=== PATIENT | male | born 1970 | race Caucasian/White ===

== ENCOUNTER 2018-12-07 10:01 | Outpatient (CLI) | payer OTHER ==
[2016-09-02 03:17] VITALS: BP 160/110
--- NOTE | 2018-12-07 15:00 | Diagnostic Imaging Report ---
ASHLEY MEDRANO [facility] [address] [facility] [address] [address] Report Submission Date: Dec 07, 2018 11:03:52 AM CDT Patient Study Name: ASHLEY NAIR Date: Dec 07, 2018 10:05:52 AM CDT Modality Type: DX Gender: M Description: KNEE 1 OR 2 VIEWS : 66 Institution: [facility] Physician: ASHLEY MEDRANO Examination: Plain film left knee History: LEFT KNEE, PAIN IN LEFT KNEE. PT STATES HE FELL OFF A ROOF AND HAD INJURIES ABOUT 30 YEARS AGO. Findings: 2 views of the left knee demonstrates mild degenerative spurring. No fracture. No dislocation. No joint effusion. No soft tissue irregularity. Impression: Mild degenerative changes. No acute appearing osseous abnormality Electronically signed on Dec 07, 2018 11:03:52 AM CDT by: Domenico NESS
== END 2018-12-07 10:03 ==
LOC: LAB 10:01
PROVIDERS: ATTEND Family Medicine
DX: M17.11 Unilateral primary osteoarthritis, right knee (principal); M25.562 Pain in left knee; G89.29 Other chronic pain
CPT/HCPCS: 73560

== ENCOUNTER 2019-05-16 09:08 | Outpatient (CLI) | payer OTHER ==
[2016-09-02 03:17] VITALS: BP 160/110
--- NOTE | 2019-05-21 14:07 | CONSULTATION REPORT ---
CHIEF COMPLAINT: Left knee pain. HISTORY OF PRESENT ILLNESS: This 48-year-old male, BMI 39.6, is seen per request of Dr. Arnold Luo for recommendations regarding treatment of left knee pain. The patient indicates he has undergone an MRI of the left knee performed on 02/01/2019 without contrast at [facility]. MRI: That study revealed an intrasubstance tear of the medial meniscus with prominent posterior parameniscal cyst. The signal extended into the central aspect of the body of the meniscus. There was a questionable articular surface component near the posteromedial meniscal capsular junction. Lateral meniscus was intact. The patient did have a small plica-like structure noted as well. X-RAYS: Plain film x-rays obtained of the left knee on 12/07/2018 at [facility] revealed mild degenerative changes with no acute- appearing osseous abnormality, no joint effusion. There was history of fall off a roof with injuries about 30 years prior. He reports this was when he was about 17 years old, fell through a tarp on a roof and landed on his feet, causing his knees to dislocate. The patient indicates the left knee is the one that bothers him primarily. He does report having undergone a previous right knee medial collateral ligament repair shortly after the initial injury. He did not have surgery on the left knee, however. The patient does report the left knee pain is diffuse or allover. He describes the quality of his knee pain as sharp and throbbing. He indicates it is severe and worsening. It has been really severe for about the past year. He rates his pain at rest as 10/10 without medication, 10/10 with activity. He says he has been taking Endocet 5/325 three times daily. He does report decrease in mobility or knee motion. He also reports some knee stiffness. He reports his knee pain is worse with activity, weightbearing, running, pivoting, cutting, climbing stairs, descending stairs, squatting, rising after sitting, bending any weightbearing, standing, putting on shoes and socks and getting in and out of a car or chair. Knee pain is better with nothing. Ice helps just a little for a short time. Pain has progressed with activities of daily living. He does report night pain which awakens him at night. He does report a fear of falling. The patient does report that the knee locks, catches, gives out, clicks. He reports he ambulates with severe difficulty, uses a walking cane, crutches and a knee brace. He is taking narcotic pain medication on a routine basis, indicates that he takes Percocet 5/325 three times daily as well as alprazolam 1 mg p.o. t.i.d. He also takes ibuprofen 200 mg three p.o. t.i.d. for a total of 1800 mg ibuprofen daily. He has done so for several years. He indicates that he has taken Percocet on and off for a long time as well. He did have an injection in the left knee around 1988, none since. He has done home exercises for years to try to rehabilitate both knees. He has tried braces, crutches and a cane for years. He has tried losing 30 pounds, but that did not make his left knee pain better. He reports taking Tylenol, glucosamine, muscle relaxers and doing pain management. The patient does indicate tingling in the left third, fourth and fifth toes after a back surgery in the past. He does report some intermittent leg pain in the left thigh region. ALLERGIES: The patient reports allergy to codeine which causes hives. MEDICATIONS: He indicates his current medications include Invega, Celexa, Wellbutrin, he spells that "opranazole," and Aleve and ibuprofen. PAST MEDICAL HISTORY: The patient indicates his past medical history is negative except as outlined above. PAST SURGICAL HISTORY: He indicates previous surgical history includes microdiscectomy L3-4 [place] in [address] Masterson in [place], [place], and bilateral hip replacements, one after the other performed in [address] Bob in [place], [place]. REVIEW OF SYSTEMS: The patient's review of systems is negative for constitutional, skin, breast, ears, nose, throat, eyes, cardiovascular, respiratory, gastrointestinal, genitourinary, neurologic. He does acknowledge psychiatric difficulties with anxiety plus traumatic stress disorder for which he takes the alprazolam on a chronic basis. PHYSICAL EXAMINATION: Vital signs are recorded revealing pulse 93, respirations 18, blood pressure 147/75 with oxygen saturation 97% on room air. His weight is 268 pounds, height 69.5 inches with a calculated BMI of 39.6. HEENT normocephalic. Neck supple. Lungs clear to percussion bilaterally. Cardiovascular regular rate and rhythm with pulses present and symmetric, radial aspect of wrist and posterior tibialis bilaterally. Abdomen is soft, nontender, obese. Extremity exam, there is mild decrease in range of motion of the left knee, patient lacking about 5 degrees of full extension. There is a moderate effusion in the left knee. There is crepitus on range of motion of the left knee, mild. The patient does have quadriceps atrophy and quadriceps strength reduction on the left versus right. He is able to extend against resistance, however. The patient does have no gross ligamentous instability, but he does guard somewhat on anteroposterior testing and medial/lateral stress testing. There is exacerbation of discomfort on varus and valgus stress while flexing and extending the left knee. The patient does have tenderness and a sensation of snapping/popping with extension of the knee from flexed position, stating it hurts along the superior and lateral border of the left patella. He reports the pain seems to be in the middle of the knee, along the upper part of the patella most prominently. He does have some discomfort on patellofemoral compression while flexing/extending the knee. There is no rissa subluxation of the patella on laterally-directed force, but this does exacerbate his discomfort slightly. The patient does have exacerbation of discomfort on both varus and valgus stress while flexing and extending the left knee. There is palpable tender plica both superomedially/superolaterally on palpation. IMPRESSION: 1. 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 2. Obesity with BMI 39.6. 3. Patient requiring narcotic medication on initial orthopedic assessment (Endocet one p.o. t.i.d.). 4. Decreased sensation lateral aspect left foot, chronic, post back surgery, per patient. 5. Disability status for back, knee and posttraumatic stress disorder/social anxiety disorder reported per patient. 6. History of bilateral total hip arthroplasties. 7. Codeine allergy. PLAN: Options discussed with patient, I recommend arthroscopy of the left knee. I did discuss with the patient what that entails, expectations, limitations, complications. He is advised that arthroscopy is not expected to be a "cure all" and that some individuals continue to have pain or functional limitations after surgery and in occasional instances the pain and functional limitations can be worse than what they started with. I did advise the patient that , amputation, myocardial infarction, stroke, life and/or limb threatening blood clots, failure to relieve pain, continued limitations, worse limitations, worse pain, worse stiffness, need for additional surgical procedure or procedures can present following surgery, infection rarely occurs as well, he is told. The patient has a number of questions and all of these are answered to his voiced satisfaction. We discussed the various alternatives available, both surgical and nonsurgical. I did advise him that knee surgery for the arthroscopic intervention we discussed is not an absolute requisite, although it is expected to be helpful for him. He voices satisfaction with answers to his questions and voices comprehension of the potential complications. I did advise him that it is important for him to anticipate doing supervised physical therapy after surgery if he hopes to get a satisfactory or better result. I did advise him that his [facility] status does indicate that he likely will have troubles with obtaining insurance coverage for supervised physical therapy and it is therefore his obligation to cover/self-pay supervised physical therapy as appropriate to expect satisfactory or better result. He verbalizes acceptance of this. I did advise him that the arthroscopy of the knee is not expected to help pain which may originate from other sources such as his back or his hips or one or more systemic difficulties. Moreover, I advised him that it is best for him to reduce his narcotic pain medication as much as possible prior to surgery as patients who are on narcotics preoperatively do have perceived poorer results, even after appropriate therapy and postoperative measures, than individuals who are not on narcotic pain medications preoperatively. We discussed the rationale for that. The patient voices desire to proceed with arthroscopy left knee and arrangements are made for that, anticipating use of [employer] shaver and Vincent equipment with availability of [place] rep. Thank you, Dr. Luo, for the opportunity to provide orthopedic evaluation and recommendations for this pleasant gentleman. Shekhar Dudley MD /Sera [id number] Job #[id number] cjd cc: Joon Guillen
== END 2019-05-16 10:45 ==
LOC: ORHTO 09:08
PROVIDERS: ATTEND Orthopaedic Surgery
DX: S83.242A Other tear of medial meniscus, current injury, left knee, initial encounter (principal); R20.9 Unspecified disturbances of skin sensation; E66.9 Obesity, unspecified; Z68.39 Body mass index [BMI] 39.0-39.9, adult; Z96.643 Presence of artificial hip joint, bilateral; Z88.1 Allergy status to other antibiotic agents
CPT/HCPCS: 99202

== ENCOUNTER 2019-07-31 16:33 | Outpatient (CLI) | payer OTHER ==
[2016-09-02 03:17] VITALS: BP 160/110
[2019-07-31 17:42] LABS: BASOPHILS % 0.4 % (0.0-1.5); NEUTROPHILS # 4.5 # k/uL (1.4-7.7)
[2019-07-31 18:00] LABS: eGFR (Non-African) > 60
== END 2019-07-31 17:33 ==
LOC: OUT 16:33
PROVIDERS: ATTEND Nurse Practitioner Adult Health
DX: S83.242A Other tear of medial meniscus, current injury, left knee, initial encounter (principal); X50.9XXA Other and unspecified overexertion or strenuous movements or postures, initial encounter
CPT/HCPCS: 36415; 80053; 85025; 93005; 99202

== ENCOUNTER 2019-08-21 11:34 | Outpatient (CLI) | payer OTHER ==
[2016-09-02 03:17] VITALS: BP 160/110
--- NOTE | 2019-08-21 20:15 | Diagnostic Imaging Report ---
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 C-SPINE XRAY, 6 views including obliques and flexion-extension: Vertebral bodies: No compression deformities. Disc spaces: Degenerative disc disease at C4-5 and C5-6 with anterior bridging osteophytes. Alignment: Mild cervical dextrocurvature which appears compensatory due to thoracic levocurvature. St raightening of the normal cervical lordosis without listhesis on flexion extension. Neural foramina: Right neural foraminal stenosis at C3-4. Left neural foraminal stenosis at C3-4 and C4-5 due to facet arthrosis. IMPRESSION: 1. Cervical dextrocurvature, compensatory due to thoracic levocurvature. 2. Straightening of the normal cervical lordosis. 3. Mild-moderate degenerative disc disease at C4-5 and C5-6. 4. Neural foraminal stenosis at C3-4 and C4-5, predominantly on the basis of facet arthrosis. Read by: Dr. Travon Calvillo Transcribed by: Travon Calvillo Transcribed Date: 08/21/2019 8:14:07 PM Electronically signed by: Dr. Travon Calvillo Date signed: 08/21/2019 8:14:08 PM
== END 2019-08-21 12:30 ==
LOC: OUT 11:34
PROVIDERS: ATTEND Nurse Practitioner Adult Health
DX: M25.562 Pain in left knee (principal); M54.2 Cervicalgia
CPT/HCPCS: 80307; 80358